=== PATIENT | male | born 1950 | race Caucasian/White ===

== ENCOUNTER 2019-12-14 17:10 | Inpatient (IN) | payer OTHER ==
[~2019-12-14] VITALS: Ht 177.8 cm; Wt 120.3 kg
[2019-12-14 17:11] VITALS: BP 122/45
[2019-12-14 18:23] LABS: HEMATOCRIT 31.9 % (42.0-52.0); HEMOGLOBIN 9.9 gm/dL (14.0-18.0); MCH 28.1 pg (26.0-34.0); MCV 90.7 fL (80.0-100.0); RBC 3.52 mil/uL (4.50-6.00); RDW 18.3 % (10.5-14.5); WBC 4.6 thou/uL (4.0-11.0)
[2019-12-14 18:29] LABS: ANION GAP 12 mmol/L (7-16); BUN 37 mg/dL (7-18); CALCIUM 9.2 mg/dL (8.5-10.1); CHLORIDE 109 mmol/L (98-107); CO2 26 mmol/L (21-32); GLUCOSE 106 mg/dL (74-106); SODIUM 147 mmol/L (136-145)
[2019-12-14 18:39] LABS: ALBUMIN 2.9 g/dL (3.4-5.0); DIRECT BILIRUBIN 0.5 mg/dL (<0.1-0.2); LIPASE 122 U/L (73-393); SGOT 19 U/L (15-37); SGPT 15 U/L (30-65); TOTAL BILIRUBIN 1.2 mg/dL (0.2-1.0); TOTAL PROTEIN 7.9 g/dL (6.4-8.2); TROPONIN-I <0.06 ng/mL (<0.06)
[2019-12-14] MEDS ORDERED: DULOXETINE HCL30 MG PO (19:43)
[2019-12-14] MEDS ORDERED: CEFDINIR300 MG PO (19:44)
[2019-12-14] MEDS ORDERED: LIPITOR40 MG PO (19:44)
[2019-12-14] MEDS ORDERED: VITAMIN C250 MG PO (19:44)
[2019-12-14] MEDS ORDERED: ESOMEPRAZOLE MA40 MG PO (19:45)
[2019-12-14] MEDS ORDERED: ENOXAPARIN40 MG/0.1 SUBQ (19:45)
[2019-12-14] MEDS ORDERED: VITAMIN D325 MC3 PO (19:45)
[2019-12-14] MEDS ORDERED: DEXAMETHASONE6 MG PO (19:45)
[2019-12-14] MEDS ORDERED: LEXAPRO 10 MG T10 M2 PO (19:46)
[2019-12-14] MEDS ORDERED: ATIVAN0.5 M1 PO (19:46)
[2019-12-14] MEDS ORDERED: IRON325 M1 PO (19:46)
[2019-12-14] MEDS ORDERED: FIBERCON625 M1 PO (19:46)
[2019-12-14] MEDS ORDERED: LOPRESSOR50 MG PO (19:46)
[2019-12-14] MEDS ORDERED: MILK OF MA400 MG/5 M PO (19:47)
[2019-12-14] MEDS ORDERED: MIRALAX17 G1 PO (19:47)
[2019-12-14] MEDS ORDERED: MINIPRESS1 MG PO (19:48)
[2019-12-14] MEDS ORDERED: KLOR-CON 10 ER10 MEQ PO (19:48)
[2019-12-14] MEDS ORDERED: ROXICODONE5 MG PO (19:48)
[2019-12-14] MEDS ORDERED: MULTIVITAMINS1 EAC7 PO (19:48)
[2019-12-14] MEDS ORDERED: SPIRONOLACTONE25 MG PO (19:49)
[2019-12-14] MEDS ORDERED: FLOMAX0.4 MG PO (19:49)
[2019-12-14] MEDS ORDERED: CARAFATE 11 GM/10 M1 PO (19:49)
[2019-12-14] MEDS ORDERED: PROAIR HFA8.5 GM INH (19:49)
[2019-12-14] MEDS ORDERED: ASA81BEC PO (19:50)
[2019-12-14] MEDS ORDERED: DEMADEX20 MG PO (19:50)
[2019-12-14 21:25] VITALS: BP 145/54
[2019-12-14 21:49] VITALS: BP 144/53
[2019-12-14 22:17] VITALS: BP 122/72
[2019-12-15 04:28] VITALS: BP 148/68
[2019-12-15 06:01] LABS: HEMATOCRIT 31.7 % (42.0-52.0); HEMOGLOBIN 9.9 gm/dL (14.0-18.0); MCH 28.2 pg (26.0-34.0); MCHC 31.2 g/dL (28.0-37.0); MCV 90.5 fL (80.0-100.0); RBC 3.5 mil/uL (4.50-6.00); RDW 18.1 % (10.5-14.5); WBC 2.5 thou/uL (4.0-11.0)
--- NOTE | 2019-12-15 06:06 | NUR ---
PT REETIMG QUIETLY. SAT 97 ON 2LNC. PARK HAD GOOD UO 1875 CLEAR YELLOW URINE . RESPIRATIONS UNLABORED PRESENTLY.
[2019-12-15 06:18] LABS: CALCIUM 9.2 mg/dL (8.5-10.1); CREATININE 1.9 mg/dL (0.7-1.3); POTASSIUM 4.1 mmol/L (3.5-5.1)
--- NOTE | 2019-12-15 07:42 | EKG ---
[facility] [place] [address] ELECTROCARDIOGRAM REPORT Name: ALEXEY LIVE Room #: 353-P ADM IN M.R.#: [id number] Admission: 12/14/19 Attend Phys: Tali Pham MD Discharge: Date of : 48 Report #: [id number] THIS REPORT FOR: cc: Quan Hodge James D. 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1950 Requested By: Bill Sethi Order Number: [id number] MD: Gurmeet Perez Measurements Intervals [place] Rate: 76 P: 64 MO: 175 QRS: 104 QRSD: 107 T: 75 QT: 420 QTc: 473 Interpretive Statements Sinus rhythm Atrial premature complex Right axis deviation Borderline low voltage, extremity leads No previous ECG available for comparison Electronically Signed On 12-15-2019 7:41:52 CDT by Gurmeet Perez [email or web address] <ELECTRONICALLY SIGNED> By: Gurmeet Perez MD, FACC 12/15/19 0741 1809 1809 Gurmeet Perez MD, [facility] /EPI
[2019-12-15 07:45] VITALS: BP 136/54
--- NOTE | 2019-12-15 10:42 | NUR ---
RD consult for poor intake. Admit with COVID + pneumonia. From SNF, hx CHF, HTN, CVA. No reported wt loss, just decreased appetite. Will add 1 ensure enlive per day to start, and continue to follow intake trends. Expect appetite to improve as breathing issues become more controlled. Low nutrition risk
--- NOTE | 2019-12-15 11:01 | NUR ---
WOUND CONSULT; THE PATIENT HAS DRESSINGS ON THE LEFT HIP INSCISIONS. THE DRESSINGS ARE C/D/I. WE HAVE NOT YET REC'D ORDERS TO MANAGE THIS WOUND YET. TODAY SMALL SKIN TEARS WERE IDENTIFIED THE HANDS. NO S/S OF INFECTION. SMALL COMMON SKIN TEARS. RECOMMENDASTIONS; -ADD A LOW AIR LOSS BED PUMP. -COVER THE SKIN TEARS WITH A BORDER FOAM, CHANGE M/W/F PRN DISCUSSED WITH KAROLINE
[2019-12-15 15:53] VITALS: BP 125/58
--- NOTE | 2019-12-15 16:08 | NUR ---
INITIAL ASSESSMENT: Consult received for discharge planning. JEFF reviewed chart and spoke with nursing and attending physician. Pt was admitted from [facility] due to pneumonia. Pt placed in Enhanced Isolation due to COVID-19. Pt is afebrile and on 2L of O2. Pt is on IV abx. ID consulted. No weekend discharge planned. EJFF spoke with pt's brother, Nasir, via phone. Introduced role of SW. Lengthy discussion regarding pt's hospitalization course and stays in SNFs since January of 2019. Pt was at [facility] and then was transferred to [facility] due to being COVID positive. Pt's brother states he is pt's DPOA and has submitted a [place] Medicaid application on pt's behalf. 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 Pt was living at home and having frequent falls and unable to cook and take care of his apt. Plan is for pt to return to [facility] when medically stable. load planner to fax clinical info to [facility] for review. JEFF updated [facility] post-acute liaison. JEFF is following to assist as needed with discharge planning.
--- NOTE | 2019-12-15 17:18 | NUR ---
ASSUMED CARE OF PT AT 0700. PT VERY LETHARGIC AND DIFFICULT TO AROUSE THIS MORNING - NOW ALERT AND ORIENTED TO SELF AND AWARE THAT HE IS IN HOSPITAL. GOOD APPETITE. ABLE TO USE BEDPAIN. ALL DRESSINGS CHANGED BY WOUND CARE. IV ABX INFUSING PER ORDER. VITALS STABLE. ON 2L, MILD TACHYPNEA. WCM.
--- NOTE | 2019-12-15 17:23 | NUR ---
FAXED CLINICAL UPDATE TO [facility] SPOKE WITH ELTON IN ADM SHE RECEIVED UPDATE.
[2019-12-15 19:55] VITALS: BP 122/55
[2019-12-16 04:48] VITALS: BP 131/58
[2019-12-16 05:25] LABS: WBC 4.7 thou/uL (4.0-11.0)
[2019-12-16 05:27] LABS: HEMATOCRIT 31.5 % (42.0-52.0); HEMOGLOBIN 9.7 gm/dL (14.0-18.0); MCH 27.9 pg (26.0-34.0); MCHC 30.7 g/dL (28.0-37.0); PLATELET COUNT 199 thou/uL (150-400); RBC 3.46 mil/uL (4.50-6.00); RDW 18.5 % (10.5-14.5)
[2019-12-16 05:30] LABS: FIBRINOGEN 251.7 mg/dL (210-360); INR 1.2; PROTIME 12.7 Seconds (9.3-11.4)
[2019-12-16 05:36] LABS: ALBUMIN 2.7 g/dL (3.4-5.0); CALCIUM 8.8 mg/dL (8.5-10.1); CREATININE 1.8 mg/dL (0.7-1.3); PHOSPHORUS 3.8 mg/dL (2.5-4.9); POTASSIUM 4.2 mmol/L (3.5-5.1); TOTAL PROTEIN 7.6 g/dL (6.4-8.2)
--- NOTE | 2019-12-16 06:00 | NUR ---
PT MAKING SLOW PROGRESS TOWARDS GOALS. ON O2 AT 2L PER NC OVERNIGHT. PT EASILY WINDED DURING CONVERSATION. ABLE TO SPEAK A FULL SENTENCE BUT WILL BE SHORT OF AIR AFTER THAT. APPEARS TO RECOVER QUICKLY. DID STATE THAT HE FEELS HE IS BREATHING EASIER TODAY COMPARED TO WHEN HE CAME IN.
[2019-12-16 08:28] VITALS: BP 122/56
[2019-12-16 09:45] LABS: ATYPICAL LYMPHS 2 %
[2019-12-16 09:46] LABS: ANISOCYTOSIS 2+
--- NOTE | 2019-12-16 10:25 | NUR ---
PT RESTING IN BED ALERT XS4. ATE BREAKFAST AND TOOK AM MEDS. PT HAD MED BM. DR MCCARTY ORDERED RT AND NEW ORDERS SEE CHART. SPOKE WITH PATIENT'S BROTHER WHO IS DPOA. HE STATES THIS HAS BEEN GOING ON SINCE JANUARY HAS BEEN IN 6 HOSPITALS.
[2019-12-16 10:34] LABS: HCO3 26.7 mmol/L (22.0-26.0); PCO2 37.6 mmHg (35.0-45.0); pH 7.469 (7.360-7.450); sO2 88.1 % (92.0-98.0)
[2019-12-16 10:36] LABS: PO2 50.4 mmHg (80.0-100.0)
--- NOTE | 2019-12-16 10:56 | NUR ---
SPOKE WITH BROTHER ERIKA AT [phone] ABOUT PATIENT'S TREATMENTS AND NEW ORDERS.
[2019-12-16 15:43] VITALS: BP 129/58
[2019-12-17] VITALS (18 sets, daily range): BP systolic 113–148; BP diastolic 39–78
--- NOTE | 2019-12-17 01:23 | NUR ---
PT LYING IN BED. INCONTINENT OF BOWEL. PARK IN PLACE. DENIES NEED FOR PAIN MEDICATION. RESTING COMFORTABLY. NO NEEDS VOICED. CALL LIGHT WITHIN REACH. FREQUENT OBSERVATION.
[2019-12-17 16:58] LABS: BE(vivo) 2.2 mmol/L (-2 to +3); HCO3 23.3 mmol/L (22.0-26.0); PCO2 25.5 mmHg (35.0-45.0); PO2 136.7 mmHg (80.0-100.0); pH 7.578 (7.360-7.450); sO2 99.1 % (92.0-98.0)
[2019-12-17 17:11] LABS: HEMATOCRIT 32.1 % (42.0-52.0); HEMOGLOBIN 9.9 gm/dL (14.0-18.0); MCHC 30.9 g/dL (28.0-37.0); MCV 90.4 fL (80.0-100.0); PLATELET COUNT 184 thou/uL (150-400); RBC 3.55 mil/uL (4.50-6.00); RDW 18.2 % (10.5-14.5); WBC 2.7 thou/uL (4.0-11.0)
[2019-12-17 17:26] LABS: ANION GAP 10 mmol/L (7-16); BUN 44 mg/dL (7-18); CALCIUM 8.7 mg/dL (8.5-10.1); CHLORIDE 107 mmol/L (98-107); CO2 27 mmol/L (21-32); CREATININE 1.8 mg/dL (0.7-1.3); GLUCOSE 178 mg/dL (74-106); POTASSIUM 4.4 mmol/L (3.5-5.1); SODIUM 144 mmol/L (136-145)
[2019-12-17 17:36] LABS: ABSOLUTE NEUTROPHILS 1.8 thou/uL (1.4-8.2); ALBUMIN 2.6 g/dL (3.4-5.0); MAGNESIUM 2.3 mg/dL (1.8-2.4); SGOT 21 U/L (15-37); SGPT 17 U/L (30-65); TOTAL BILIRUBIN 0.9 mg/dL (0.2-1.0); TOTAL PROTEIN 7.6 g/dL (6.4-8.2); TROPONIN-I <0.06 ng/mL (<0.06)
[2019-12-17 17:37] LABS: MICROCYTES FEW
[2019-12-17 17:38] LABS: ANISOCYTOSIS 1+; OVALOCYTES OCCASIONAL; POIKILOCYTOSIS SLIGHT
[2019-12-17 17:39] LABS: MACROCYTES FEW; POLYCHROMASIA OCCASIONAL
--- NOTE | 2019-12-17 19:25 | NUR ---
PATIENT NOTED TO HAVE INCREASE SOB WITH TACHYPNEA. NOTED TO BE DIAPHORETIC. VITALS HOWEVER ARE STABLE, AND MOST LABS ARE WNL. ORDERS FROM DR CASANOVA AND LUL EARLIER TO ADMIT TO ICU FOR CLOSER OBSERVATION.
--- NOTE | 2019-12-17 20:36 | NUR ---
ASSUMED CARE FROM DAY SHIFT PT RESTING IN BED ONLY ANSWERING TO NAME ONLY, VVS SAY 98 % ON 4L NC, SKIN MOIST, PARK WITH CLEAR YELLOW URINE. DRESSING TO LEFT HIP DRY AND INTACT. BI CONSULTANT SHOWS NSR.
[2019-12-18] VITALS (34 sets, daily range): BP systolic 107–130; BP diastolic 30–87
--- NOTE | 2019-12-18 02:34 | NUR ---
PT TRANSFERED FROM [facility] FOR CLOSE MONITORING IN ICU, ON 4L BY DEB. PT REMAINS STABLE O2 DOWN TO 2L, SATS 98-100%, RR 16-20. WHEN AWAKE PT GETS SOA FROM TALKING OR ANY EXERTION. PT ANSWERS QUESTIONS APPROPRIATELY THOUGH CONFUSED ABOUT THIS HOSPITALISATION. PT SAYS HE CAME TO HOSPITAL FOR PAIN IN HIS LEFT HIP, MENTIONING THAT HE WAS OUT OF HIS PAIN MEDICINE. PT IS DIAPHORETIC, GOWN DAMP WITH SWEAT, NO FEVER, GLUCOSE WAS 142. WILL MONITOR.
[2019-12-18 04:57] LABS: HEMATOCRIT 32.3 % (42.0-52.0); HEMOGLOBIN 9.9 gm/dL (14.0-18.0); MCH 27.7 pg (26.0-34.0); MCHC 30.8 g/dL (28.0-37.0); MCV 89.9 fL (80.0-100.0); PLATELET COUNT 160 thou/uL (150-400); RBC 3.59 mil/uL (4.50-6.00); RDW 18.3 % (10.5-14.5); WBC 2.7 thou/uL (4.0-11.0)
[2019-12-18 05:05] LABS: ALBUMIN 2.4 g/dL (3.4-5.0); CALCIUM 8.7 mg/dL (8.5-10.1); CREATININE 1.4 mg/dL (0.7-1.3); MAGNESIUM 2.3 mg/dL (1.8-2.4); PHOSPHORUS 3.5 mg/dL (2.5-4.9); POTASSIUM 4.2 mmol/L (3.5-5.1); TOTAL BILIRUBIN 0.8 mg/dL (0.2-1.0); TOTAL PROTEIN 7.3 g/dL (6.4-8.2)
--- NOTE | 2019-12-18 07:47 | NUR ---
Pt TRANSFERRED TO ICU. WILL PLACE ON HOLD AND AWAIT NEW ORDERS WHEN APPROPRIATE
[2019-12-18 09:52] LABS: ABSOLUTE NEUTROPHILS 1.6 thou/uL (1.4-8.2); ANISOCYTOSIS 1+; HYPOCHROMASIA 1+; PLATELET ESTIMATE NORMAL
--- NOTE | 2019-12-18 11:16 | NUR ---
WOUND CARE F/U; DISCUSSED WOUND CARE ISSUES WITH THE RN TODAY. BILATERAL HAND WOUNDS ARE STABLE. WOUND ETIOLOGY IS RE; SKIN TEARS. WE WILL CONTINUE CURRENT WOUND CARE ORDERS WITH BORDER FOAMS BILATERALLY. NO CHANGES TO PLAN OF CARE.
--- NOTE | 2019-12-18 16:12 | NUR ---
SW reviewed chart and spoke with attending physician. Pt was transferred to ICU from 3W earlier today due to respiratory distress. Possible need for bipap. Pt remains in Enhanced Isolation due to COVID-19. Pt is afebrile and on IV abx. Pt has started course of Remdesivir. JEFF provided upated to [facility] post-acute liaison. Plan is for pt to return to [facility]. JEFF is following to assist as needed with discharge planning.
[2019-12-19] VITALS (46 sets, daily range): BP systolic 90–142; BP diastolic 36–80
[2019-12-19 06:11] LABS: CREATININE 1.5 mg/dL (0.7-1.3); POTASSIUM 4.6 mmol/L (3.5-5.1)
--- NOTE | 2019-12-19 07:06 | NUR ---
PATIENT HAD A MED SIZE FORMED BM THIS MORNING AT 0500 . PATIENT STATES HE IS FEELING MUCH BETTER THIS MORNING.
--- NOTE | 2019-12-19 09:23 | 2DMMODE ---
[facility] [place] [address] [address] [place] [address] 2 D/M-MODE ECHOCARDIOGRAM Name: ALEXEY LIVE Room #: 237-P ADM IN M.R.#: [id number] Admission: 12/14/19 Attend Phys: Tali Pham MD Discharge: Date of : 48 Report #: [id number] THIS REPORT FOR: cc: Quan Hodge James D. DO Santiago, Patrick MD [facility] ~ APPROVED REPORT Study performed: 12/19/2019 08:41:22 EXAM: Limited 2D, Doppler, and color-flow Echocardiogram Patient Location: ICU Room #: 237 Status: routine BSA: 2.26 HR: 72 bpm BP: 125/50 mmHg Rhythm: Irregular Other Information Study Quality: Adequate Indications COVID-19 Positive. Limited echo done. Respiratory failure, elevated BNP, CHF. Aortic Valve AoV Peak Sam.: 2.94 m/s AO Peak Gr.: 34.61 mmHg AO Mean Gr.: 15.33 mmHg AO V2 Mean: 1.80 m/s AO V2 VTI: 60.74 cm Tricuspid Valve TR Peak Sam.: 3.83 m/s RAP Estimate: 10.00 mmHg TR Peak Gr.: 59.00 mmHg PA Pressure: 69.00 mmHg Left Ventricle The left ventricle is normal size. There is normal LV segmental wall motion. There is normal left ventricular wall thickness. Left ventricular systolic function is normal. LVEF is 50-55%. Right Ventricle Right ventricle is dilated. Right ventricle is [facility] [address] [place] [address] 2 D/M-MODE ECHOCARDIOGRAM Name: ALEXEY LIVE Room #: 237-P ADM IN M.R.#: [id number] Admission: 12/14/19 Attend Phys: Jessica Cristina Discharge: Date of : 48 Report #: [id number] hypokinetic. Atria Left atrium is dilated. Right atrium is dilated. Aortic Valve Aortic valve is calcified with restricted opening. Peak pressure gradient of 35mmHg and a mean of 16mmHg. Moderate/severe aortic regurgitation. Mitral Valve The mitral valve is normal in structure. Mild mitral annular calcification. Moderate/severe mitral regurgitation. Tricuspid Valve The tricuspid valve is normal in structure. Severe tricuspid regurgitation. Estimated PAP is 70mmHg. Great Vessels IVC is dilated and collapses <50% with inspiration. Pericardium There is no pericardial effusion. <Conclusion> Normal left atrial size and the wall thickness is Ejection fraction estimated 55%, no obvious segmental wall motion abnormality Aortic valve is mildly calcified, mild aortic valve stenosis mean gradient 16 mmHg Moderate biatrial enlargement Moderate right ventricular enlargement, mild hypokineses Moderate to severe aortic valve insufficiency Moderate mitral valve insufficiency Severe tricuspid valve insufficiency Severe pulmonary hypertension Pulmonary artery systolic pressure estimated at 70 mmHg No pericardial effusion <ELECTRONICALLY SIGNED> By: Gurmeet Perez MD, FACC 12/19/19922 2 2 Gurmeet Perez MD, FAC /INF
--- NOTE | 2019-12-19 12:56 | NUR ---
JEFF reviewed chart and spoke with attending physician. Pt remains in ICU in Enhanced Isolation due to COVID-19. Pt is afebrile and on 2L of O2. Pt is on IV abx and completing course of Remdesivir. JEFF faxed clinical updated to [facility] for review. Confirmed info was received with [facility] post-acute liaison. JEFF spoke with pt's brother, Nasir, to provide update. Plan is for pt to return to [facility] SNF when medically stable. Will need therapy orders when pt is able to participate. JEFF is following to assist as needed with discharge planning.
--- NOTE | 2019-12-19 19:08 | NUR ---
PATIENT CHANGED STATUS TODAY. CAN GO TO 3W WHEN BED BECOMES AVAILABLE. PATIENT 2L NC WHICH IS HOME O2 AMOUNT. ADEQUATE URINE OUTPUT. GOOD APPETITE.
[2019-12-20] VITALS (23 sets, daily range): BP systolic 106–153; BP diastolic 40–57
[2019-12-20 05:13] LABS: ALBUMIN 2.7 g/dL (3.4-5.0); DIRECT BILIRUBIN 0.3 mg/dL (<0.1-0.2); TOTAL BILIRUBIN 0.7 mg/dL (0.2-1.0); TOTAL PROTEIN 7.6 g/dL (6.4-8.2)
--- NOTE | 2019-12-20 09:21 | NUR ---
WOUND CARE F/U; PT REMAINS IN ISOLATION DUE TO COVID, THEREFORE LIMITED ASSESSMENT ON WOUNDS, PER HOUSEKEEPER HOME EDIL WOUNDS HEALING, SURGICAL INCISION HIP HEALING, SKIN TEARS ON HANDS, PHOTOS TO BE TAKEN TODAY, WILL ASSESS PER PHOTO AND TO NOTIFY WOUND TEAM IF WORSEN, HIP INCISION CARE PER SURGEON RECOMMENDATIONS; CONT BORDER FOAM TO HANDS CHANGE M/W/F AND PRN, SURGICAL HIP WOUND CARE PER SURGEON HOUSEKEEPER HOME AWARE
--- NOTE | 2019-12-20 15:53 | NUR ---
COMPLAINED OF PAIN TO L WRIST, 10/01. PERCOCET 10MG GIVEN WITH GOOD RESULTS. TOLERATED WELL. STATED HE GOT HIS WRIST X-RAYED AFTER HIS FALL BUT DID NOT KNOW THE RESULTS. MD NOTIFIED. OOB TO CHAIR WITH PT, MAX ASSIST. WHEN TRYING TO GET FROM CHAIR TO BSC, LEFT KNEE GAVE OUT AND PATIENT PUT BACK IN BED WITH GAITBELT AND NURSE TIMES 2. REPORT GIVEN TO KAROLINE CERNA AND PATIENT TRANSFERRED IN STABLE CONDITION TO 360.
[2019-12-21 05:04] VITALS: BP 118/40
[2019-12-21 08:40] VITALS: BP 117/81
[2019-12-21 12:53] VITALS: BP 125/48
[2019-12-21 16:09] VITALS: BP 111/49
--- NOTE | 2019-12-21 16:26 | NUR ---
PATIENT ALERT TO SELF, FORGETFUL AT TIMES BUT ABLE TO HOLD CONVERSATION. RECENT LEFT HIP FX. PAIN MANAGEMENT FOCUS TODAY. PRN OXYCODONE GIVEN PER APR. PT WORKED WITH PT/OT TODAY. VERY WEAK AND REQURING MAX SUPPORT. THIS AFTERNOON PATIENT BECAME VERY DIAPHORETIC. AFEBRILE. BLOOD SUGAR CHECKED. COMMUNICATED TO DR. MOSCOSO, WILL CONTINUE TO MONTIOR PATIENT AND CHECK CBC IN AM. PATIENT STATES HE IS COMFORTABLE.
[2019-12-21 19:23] VITALS: BP 125/47
[2019-12-22 04:21] VITALS: BP 121/37
--- NOTE | 2019-12-22 06:42 | NUR ---
FOLLOWING POC WITH [facility] ANTIBIOTICS. VSS, TELE SHOWS SR, NO FEVER OVERNIGHT. PT ONLY COMPLAINT WAS PAIN, ORAL PAIN MEDICATION GIVEN WITH GOOD RESULTS. PT BED ON LOW LOSS PUMP. PARK GETTING DRAINAGE.
[2019-12-22 07:28] LABS: HEMATOCRIT 35.9 % (42.0-52.0); HEMOGLOBIN 10.8 gm/dL (14.0-18.0); MCH 27.3 pg (26.0-34.0); MCV 90.9 fL (80.0-100.0); RBC 3.95 mil/uL (4.50-6.00); RDW 18.9 % (10.5-14.5); WBC 6.1 thou/uL (4.0-11.0)
[2019-12-22 07:34] LABS: CALCIUM 9.8 mg/dL (8.5-10.1); CREATININE 1.6 mg/dL (0.7-1.3); POTASSIUM 4.7 mmol/L (3.5-5.1)
[2019-12-22 07:43] VITALS: BP 131/106
--- NOTE | 2019-12-22 08:12 | NUR ---
follow up: continued length of stay for COVID+. On thiamine, vitamin C, vitamin D and thiamine as well as ferrous sulfate. Wt up from 240s to 265 lb ? accuracy, no edema. Eating 75-90% meals. Remains low nutrition risk
[2019-12-22] MEDS ORDERED: METOPROLOL TART25 MG PO (11:13)
[2019-12-22] MEDS ORDERED: CEFDINIR300 MG PO (11:13)
--- NOTE | 2019-12-22 11:15 | NUR ---
WOUND CARE F/U; THE PATIENT IS IN COVID RESTRICTIONS. I DISCUSSED THE PATIENT WITH THE MANAGER ETL. THE PATIENT HAS STAPLED RE;HIP SURGERY. THE RN WILL FIND OUT WHEN THE SURGEON WANTS THE MARTIN OUT. I WOULD BE HAPPY TO REMOVE THE MARTIN IF NECCESSARY. THE RN REPORTS THE SKIN TEARS ARE STABLE AT THIS TIME. NO CHANGES TO POC
[2019-12-22 11:38] VITALS: BP 135/56
--- NOTE | 2019-12-22 14:26 | NUR ---
DISCHARGE NOTE: SW reviewed chart and spoke with nursing and attending physician. Pt remains in Enhanced Isolation due to COVID-19. Pt is medically stable for discharge back to [facility] today. senior program planner coordinated and notified family. Transportation scheduled for [id number] per facility's arrangements. Chart copy requested. No additional SW needs identified at this time, but is available to assist should needs arise.
--- NOTE | 2019-12-22 15:37 | NUR ---
ASSUMED CARE OF PT AT 0700. PT ALERT AND ORIENTED, FORGETFUL AND SOMEWHAT CONFUSED AT TIMES. AWARE OF DATE AND THAT HE IS IN HOSPITAL. VERY PLEASANT. C/O PAIN IN LEFT HIP - GOOD RELIEF WITH MED REGIMEN. INCONTINENT. SKIN TEAR DRESSINGS CHANGED PER ORDER. BREATHING ON 2L NC - DENIES SOA BUT VISIBLY WINDED AFTER CONVERSATIONS. ANTICIPATE D/C BACK TO FACILITY TODAY.
[2019-12-22 15:45] VITALS: BP 152/115
== END 2019-12-22 17:24 | DRG 177 ==
LOC: ER 17:10 → EROBS 21:04 → 3W 21:04 → ICU 21:04 → 3W 21:52 → ICU 12-17 20:34 → 3W 12-20 15:20
PROVIDERS: Emergency Medicine; Hospitalist; Internal Medicine; Internal Medicine Pulmonary Disease; Nurse Practitioner Family; Specialist; ADMIT Hospitalist; ATTEND Hospitalist
PROC: XW033E5 Introduction of Remdesivir Anti-infective into Peripheral Vein, Percutaneous Approach, New Technology Group 5 (ICD-10-PCS; principal; 2019-12-15)
DX: U07.1 COVID-19 (principal); J96.21 Acute and chronic respiratory failure with hypoxia; J12.89 Other viral pneumonia; I42.9 Cardiomyopathy, unspecified; I13.0 Hypertensive heart and chronic kidney disease with heart failure and stage 1 through stage 4 chronic kidney disease, or unspecified chronic kidney disease; I50.9 Heart failure, unspecified; N18.30 Chronic kidney disease, stage 3 unspecified; N40.0 Benign prostatic hyperplasia without lower urinary tract symptoms; E78.5 Hyperlipidemia, unspecified; D64.9 Anemia, unspecified; G72.89 Other specified myopathies; Z60.2 Problems related to living alone; I27.20 Pulmonary hypertension, unspecified; D72.819 Decreased white blood cell count, unspecified; Z86.73 Personal history of transient ischemic attack (TIA), and cerebral infarction without residual deficits; Z87.81 Personal history of (healed) traumatic fracture; Z23 Encounter for immunization; Z79.899 Other long term (current) drug therapy
CPT/HCPCS: 10078; 10080; 10203; 10879

== ENCOUNTER 2020-02-26 14:48 | Emergency (ER) | payer OTHER ==
[~2020-02-26] VITALS: Ht 177.8 cm; Wt 79.8 kg
[~2020-02-26 14:48] MED LIST: ASA81BEC PO; ATIVAN0.5 M1 PO; CARAFATE 11 GM/10 M1 PO; CEFDINIR300 MG PO; DEMADEX20 MG PO; DEXAMETHASONE6 MG PO; DULOXETINE HCL30 MG PO; ENOXAPARIN40 MG/0.1 SUBQ; ESOMEPRAZOLE MA40 MG PO; FIBERCON625 M1 PO; FLOMAX0.4 MG PO; IRON325 M1 PO; KLOR-CON 10 ER10 MEQ PO; LEXAPRO 10 MG T10 M2 PO; LIPITOR40 MG PO; LOPRESSOR50 MG PO; METOPROLOL TART25 MG PO; MILK OF MA400 MG/5 M PO; MINIPRESS1 MG PO; MIRALAX17 G1 PO; MULTIVITAMINS1 EAC7 PO; PROAIR HFA8.5 GM INH; ROXICODONE5 MG PO; SPIRONOLACTONE25 MG PO; VITAMIN C250 MG PO; VITAMIN D325 MC3 PO
[2020-02-26 16:06] VITALS: BP 138/58
== END 2020-02-26 16:06 | disposition home or self-care (01) ==
LOC: ER 14:48
DX: S09.90XA Unspecified injury of head, initial encounter (principal); I13.0 Hypertensive heart and chronic kidney disease with heart failure and stage 1 through stage 4 chronic kidney disease, or unspecified chronic kidney disease; N18.30 Chronic kidney disease, stage 3 unspecified; I50.9 Heart failure, unspecified; Z79.899 Other long term (current) drug therapy; W18.39XA Other fall on same level, initial encounter; Y93.89 Activity, other specified; Y92.89 Other specified places as the place of occurrence of the external cause; Y99.8 Other external cause status

== ENCOUNTER 2020-03-05 11:54 | Inpatient (IN) | payer OTHER ==
[~2020-03-05] VITALS: Ht 182.9 cm; Wt 107.0 kg
--- NOTE | ~2020-03-05 | EEG ---
[facility] [place] [address] [address] [place] [address] ELECTROENCEPHALOGRAM Name: ALEXEY LIVE Room #: 241-P ADM IN M.R.#: [id number] Admission: 03/05/20 Attend Phys: Sushant Contreras MD Discharge: Date of : 48 Report #: [id number] THIS REPORT FOR: //name// DATE OF SERVICE: 03/11/2020 This patient is being evaluated for altered mental status. EEG is being done to further evaluate for encephalopathy or seizure. The patient's background activity is pretty suppressed and low voltage. It is difficult to determine the frequency. It appeared to be about 4 Hz and 15-20 microvolt. May be higher on occasion, but that is difficult to separate from artifact. Photic stimulation is unremarkable. IMPRESSION: This is an abnormal EEG because it is disorganized and pretty suppressed. There is a nonspecific abnormality, which can occur with dementia, encephalopathy, effect of psychotropic medication, etc. Clinical correlation is recommended. He does have some frontal sharper activity, but that looks more like an eye movement artifact, but it is difficult to be certain. By: 1207 1215 Al Pierre MD /nt
[2020-03-05 12:21] LABS: HEMATOCRIT 40.8 % (42.0-52.0); HEMOGLOBIN 12.5 gm/dL (14.0-18.0); MCH 28.4 pg (26.0-34.0); MCHC 30.7 g/dL (28.0-37.0); MCV 92.3 fL (80.0-100.0); PLATELET COUNT 223 thou/uL (150-400); RBC 4.42 mil/uL (4.50-6.00); RDW 18.4 % (10.5-14.5); WBC 16.4 thou/uL (4.0-11.0)
[2020-03-05] MEDS ORDERED: TOPROL XL25 MG PO (12:23)
[2020-03-05] MEDS ORDERED: WOMEN'S LAXATIVE5 M1 PO (12:24)
[2020-03-05 12:29] LABS: BE(vivo) -10.9 mmol/L (-2 to +3); HCO3 16.6 mmol/L (22.0-26.0); PCO2 42.9 mmHg (35.0-45.0); PO2 272.7 mmHg (80.0-100.0); pH 7.205 (7.360-7.450); sO2 99.5 % (92.0-98.0)
[2020-03-05 12:32] LABS: ANION GAP 11 mmol/L (7-16); BUN 15 mg/dL (7-18); CHLORIDE 103 mmol/L (98-107); CO2 19 mmol/L (21-32); CREATININE 1.4 mg/dL (0.7-1.3); GLUCOSE 213 mg/dL (74-106); SODIUM 133 mmol/L (136-145)
[2020-03-05 12:36] LABS: INR 1.2
[2020-03-05 12:46] LABS: ABSOLUTE NEUTROPHILS 11.6 thou/uL (1.4-8.2); PLATELET ESTIMATE NORMAL; SGOT 455 U/L (15-37); SGPT 388 U/L (16-63); TOTAL BILIRUBIN 0.8 mg/dL (0.2-1.0); TOTAL PROTEIN 7.2 g/dL (6.4-8.2); TROPONIN-I <0.06 ng/mL (<0.06)
--- NOTE | 2020-03-05 12:46 | EKG ---
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 : 1950 Requested By: Stiven Lemons Order Number: [id number] MD: Gurmeet Perez Measurements Intervals [place] Rate: 96 P: 52 AK: 182 QRS: 80 QRSD: 103 T: 70 QT: 423 QTc: 535 Interpretive Statements Sinus rhythm Probable left atrial enlargement Left ventricular hypertrophy Nonspecific T abnrm, anterolateral leads Prolonged QT interval Baseline wander in lead(s) I,III,aVL Compared to ECG 12/14/2019 18:09:14 Left ventricular hypertrophy now present Prolonged QT interval now present Atrial premature complex(es) no longer present Right-axis deviation no longer present Electronically Signed On 03-05-2020 12:46:46 INDUSTRIAL GAS SERVICE HELPER by Gurmeet Perez [email or web address] <ELECTRONICALLY SIGNED> By: Gurmeet Perez MD, FAC 03/05/20 1246 1211 1211 Gurmeet Perez MD, [facility] /EPI
[2020-03-05 12:47] LABS: ANISOCYTOSIS 1+
--- NOTE | 2020-03-05 14:24 | NUR ---
Per EMS pt is coming from [facility] where they state he was given his morning meds then suddenly became unresponsive. The staff present where not able to find a pulse and began chest compressions and CPR. Upon arrival of EMS he had a pulse but was unresponsive. EMS administered 2 mg of Narcan IN with no seen effects. The patient was intubated in the ED and admitted to Dr. Contreras who admitted to the ICU. CM will follow for discharge needs.
[2020-03-05 15:34] LABS: URINE BILIRUBIN NEGATIVE (Negative); URINE BLOOD NEGATIVE (Negative); URINE CLARITY CLEAR; URINE GLUCOSE-RANDOM* NEGATIVE (Negative); URINE KETONES NEGATIVE (Negative); URINE LEUKOCYTES-REFLEX NEGATIVE (Negative); URINE NITRITE-REFLEX NEGATIVE (Negative); URINE PROTEIN (DIPSTICK) TRACE (Negative); URINE SPECIFIC GRAVITY 1.025 (1.005-1.035); URINE UROBILINOGEN 0.2 E.U./dl (0.2-1.0)
[2020-03-05 15:35] LABS: URINE COLOR YELLOW
[2020-03-05 15:46] LABS: BE(vivo) -5.9 mmol/L (-2 to +3); HCO3 19.2 mmol/L (22.0-26.0); PCO2 36.8 mmHg (35.0-45.0); PO2 100.4 mmHg (80.0-100.0); pH 7.336 (7.360-7.450); sO2 97.3 % (92.0-98.0)
[2020-03-05 16:23] LABS: CREATININE 1.3 mg/dL (0.7-1.3)
[2020-03-05 16:26] LABS: CALCIUM 5.9 mg/dL (8.5-10.1)
[2020-03-05 16:47] LABS: FIBRINOGEN 373.8 mg/dL (210-360)
--- NOTE | 2020-03-05 16:49 | NUR ---
VAT CONSULTED FOR PICC PLACEMENT. PT'S LABS,MEDS,HX,ORDER CONSENT VERIFIED. ALYCIA CEPHALIC WIDELY PATENT WITH USG. 5FR TL POWER PICC TRIMMED TO 45CM INSERTED TO 0CM. STAT CXR ORDERED. CONSENT FOR MEDICAL NECCESSITY.
--- NOTE | 2020-03-05 17:56 | NUR ---
cxr confirmed picc in svc. released for immediate use per protocol to oscar kearney
[2020-03-05 18:15] VITALS: BP 133/71
--- NOTE | 2020-03-05 19:26 | NUR ---
PT TRANSFERED FROM ED TO ICU AT 1830. PT INTUBATED AND SEDATED. NO RESTRAINTS DUE TO PT BEING NON-RESPONSIVE. POSITIVE CORNEAL, SLIGHT GAG, PUPILS EQUAL AND REACTIVE, NO WITHDRAW TO PAIN, GCS 3, MTN NEEDS TO BE CALLED. OG/ETT/RIJ IN PLACE AND CONFIRMED BY XRAY. PARK IN PLACE. TWO PERIPHERAL IVS WERE DC'D, ONE ON THE RIGHT ANTERIOR WRIST THAT WAS STARTED BY ED WAS EXTRAVASATED. PT HAS DIFFUSE SMALL WOUNDS ALL OVER SKIN. PROPOFOL AND LEVOPHED GTT IN PLACE. UNABLE TO DETERMINE IF PT PROGRESSING TOWARDS POC.
[2020-03-05 23:33] LABS: HEMATOCRIT 36.2 % (42.0-52.0); HEMOGLOBIN 11.6 gm/dL (14.0-18.0); MCH 28.4 pg (26.0-34.0); MCHC 32.1 g/dL (28.0-37.0); MCV 88.4 fL (80.0-100.0); RBC 4.1 mil/uL (4.50-6.00); RDW 17.6 % (10.5-14.5); WBC 12.8 thou/uL (4.0-11.0)
[2020-03-05 23:35] LABS: CREATININE 1.8 mg/dL (0.7-1.3)
[2020-03-06] VITALS (98 sets, daily range): BP systolic 101–188; BP diastolic 39–70
[2020-03-06 00:01] LABS: CALCIUM 8.5 mg/dL (8.5-10.1); POTASSIUM 4.3 mmol/L (3.5-5.1)
[2020-03-06 03:55] LABS: BE(vivo) -2.7 mmol/L (-2 to +3); HCO3 21.9 mmol/L (22.0-26.0); PCO2 37.1 mmHg (35.0-45.0); PO2 160.2 mmHg (80.0-100.0); pH 7.388 (7.360-7.450)
[2020-03-06 06:05] LABS: ABSOLUTE NEUTROPHILS 12.8 thou/uL (1.4-8.2); BASOPHILS 0.2 % (0.0-2.0); HEMATOCRIT 34.5 % (42.0-52.0); LYMPHOCYTES 6.7 % (24.0-44.0); MCH 28.4 pg (26.0-34.0); MCV 88.7 fL (80.0-100.0); MONOCYTES 15.5 % (1.0-8.0); PLATELET COUNT 199 thou/uL (150-400); POLYS 77.6 % (36.0-66.0); RBC 3.89 mil/uL (4.50-6.00); RDW 17.7 % (10.5-14.5); WBC 16.5 thou/uL (4.0-11.0)
[2020-03-06 07:25] LABS: ALBUMIN 2.6 g/dL (3.4-5.0); CALCIUM 8.5 mg/dL (8.5-10.1); CREATININE 1.9 mg/dL (0.7-1.3); POTASSIUM 4.2 mmol/L (3.5-5.1); TOTAL BILIRUBIN 0.9 mg/dL (0.2-1.0); TOTAL PROTEIN 6.2 g/dL (6.4-8.2)
--- NOTE | 2020-03-06 08:55 | NUR ---
If intubated >48hr, recommend initiate tube feeding of vital AF at 25ml/hr.
--- NOTE | 2020-03-06 14:32 | NUR ---
Case discussed with the care team. Nursing has updated the pt's bro/dpoa Rich and he is anxious to talk with the attending regarding his prognosis and plan of care. Message sent to attending. Pt remains intubated in the ICU and unresponsive. [facility] faxing a copy of the pt's dpoa paperwork over for the chart. The pt was here in November with [facility] and was dc'd back to the SNF for continued rehab on 12-22-19. 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 He was continuing to receive part B therapies per his medicare benefits. Prognosis is guarded at this time. Will follow along for support and dc planning as needed. Clincial updated faxed to [facility] as they are holding his bed.
--- NOTE | 2020-03-06 15:36 | NUR ---
FAXED CLINICAL UPDATE TO [facility] SPOKE WITH ELTON IN ADM SHE RECEIVED UPDATE.
[2020-03-06 17:35] LABS: HEMATOCRIT 34.4 % (42.0-52.0); HEMOGLOBIN 11.3 gm/dL (14.0-18.0); MCH 29.1 pg (26.0-34.0); MCHC 32.9 g/dL (28.0-37.0); MCV 88.5 fL (80.0-100.0); PLATELET COUNT 157 thou/uL (150-400); RBC 3.89 mil/uL (4.50-6.00); RDW 18.2 % (10.5-14.5); WBC 10.6 thou/uL (4.0-11.0)
[2020-03-06 17:44] LABS: CALCIUM 8.8 mg/dL (8.5-10.1); CREATININE 1.9 mg/dL (0.7-1.3); POTASSIUM 3.9 mmol/L (3.5-5.1)
[2020-03-06 18:23] LABS: ABSOLUTE NEUTROPHILS 8.7 thou/uL (1.4-8.2); ANISOCYTOSIS 1+; POLYCHROMASIA OCCASIONAL
--- NOTE | 2020-03-06 21:37 | HC ---
[facility] [address] [address] [place] [address] CONSULTATION Name: CALOSSTACYCUBA Room #: 241-P ADM IN M.R.#: [id number] Admission: 03/05/20 Attend Phys: Sushant Contreras MD Discharge: Date of : 48 Report #: [id number] THIS REPORT FOR: cc: Quan Hodge James D. DO Geha, Daniel J. MD ~ DATE OF SERVICE: 03/06/2020 INFECTIOUS DISEASE CONSULTATION REASON FOR CONSULTATION: I was asked to evaluate concerning pneumonia and respiratory failure. HISTORY OF PRESENT ILLNESS: The patient is a 70-year-old with a previous history of COVID-19 who was seen for this in 11/2019. He resides at a local detention and was found down yesterday unresponsive, pulseless by nursing staff. CPR was initiated and he regained his pulse. Brought in to the Emergency Room for further evaluation, found to have bilateral pulmonary infiltrates, remains hypotensive on the ventilator now at 50%. Small to moderate amount of tracheal secretions. Was placed on broad antibiotic coverage. No gross aspiration has been witnessed. He does have an NG tube in place with blood-tinged return. No reported abdominal pain or diarrhea. He has had reasonable urine output. CT scan of the head showed no evidence of hemorrhage. He remains sedated while on the ventilator. REVIEW OF SYSTEMS: A 14-point review was negative other than what has been described above. ALLERGIES: None known. MEDICATIONS: As noted on his MAR, which were reviewed, currently on vancomycin, Levaquin and Zosyn. PAST MEDICAL HISTORY: Pneumonia, COVID-19 positive in November and treated for such, anemia, hypertension, chronic kidney disease, BPH, stroke, congestive heart failure, left femur fracture, status post ORIF. FAMILY HISTORY: Not available. SOCIAL HISTORY: Past smoker, no significant alcohol intake at this time. PHYSICAL EXAMINATION: VITAL SIGNS: Temperature was 39.2. Vital signs were stable on 8 mcg of Levophed. SKIN: Without rash or decubitus. No palpable adenopathy, was obese. [facility] [address] [place] [address] CONSULTATION Name: CUBA LIVE Room #: 241-P ADM IN M.R.#: [id number] Admission: 03/05/20 Attend Phys: Sushant Contreras MD Discharge: Date of : 48 Report #: [id number] HEENT: Eyes, without scleral icterus. Pupils are equal, round and reactive to light. Mouth without mucositis. He was orally intubated. NECK: Supple. LUNGS: Coarse bilaterally. HEART: Regular without appreciable murmur, gallop or rub. ABDOMEN: Soft, no mass or hepatosplenomegaly. GENITOURINARY: External genitalia without mass or lesion. He had an indwelling Miller catheter. RECTAL: Not performed. EXTREMITIES: With 1+ edema in the lower extremities. No cyanosis or clubbing. Able to move all of his extremities. NEUROLOGIC: He was sedated. LABORATORY STUDIES: Reviewed. MICROBIOLOGY: Reviewed. CT scan of the chest and chest x-ray reviewed. IMPRESSION: A 70-year-old presents with dji-em-gcvbdldp cardiac arrest, healthcare-associated pneumonia with respiratory failure, previous stroke and congestive heart failure with chronic kidney disease. Recent COVID-19 infection. RECOMMENDATIONS: We will continue broad antibiotic coverage, awaiting cultures. Serial chest x-rays. ICU full support at this point. Further discussion with the family is being undertaken regarding overall treatment plan. I have discussed with nursing staff at the bedside. <ELECTRONICALLY SIGNED> By: Cuba Chavez MD 03/06/20 2137 1227 1250 Cuba Chavez MD /nt
[2020-03-07] VITALS (85 sets, daily range): BP systolic 109–136; BP diastolic 45–60
--- NOTE | 2020-03-07 05:33 | NUR ---
PATIENT IS SADATED AND CONTINUES TO BE NON RESPONSIVE. VERY LITTLE MOVEMENT TO PAIN STIMULI.PATIENT WAS ASSESSED AND MEDS WERE PASSED PERDOCTORS ORDER. HEPARIN PLACED ON HOLD UNTIL APTT COMES BACK DUE TO SUCTION CONTAINER HAD 700CC OF BLOODY LIQUID. WILL REINSTATE PER PROTOCAL.
[2020-03-07 05:53] LABS: CREATININE 1.5 mg/dL (0.7-1.3)
[2020-03-07 05:54] LABS: ABSOLUTE NEUTROPHILS 3.9 thou/uL (1.4-8.2); BASOPHILS 0.7 % (0.0-2.0); EOSINOPHILS 0.4 % (0.0-3.0); HEMATOCRIT 24.1 % (42.0-52.0); LYMPHOCYTES 13.4 % (24.0-44.0); MCH 31.8 pg (26.0-34.0); MCHC 35.4 g/dL (28.0-37.0); MCV 89.9 fL (80.0-100.0); MONOCYTES 15.7 % (1.0-8.0); PLATELET COUNT 114 thou/uL (150-400); POLYS 69.8 % (36.0-66.0); RBC 2.68 mil/uL (4.50-6.00); RDW 18.3 % (10.5-14.5); WBC 5.6 thou/uL (4.0-11.0)
[2020-03-07 06:01] LABS: CALCIUM 5.2 mg/dL (8.5-10.1); POTASSIUM 2.7 mmol/L (3.5-5.1)
[2020-03-07 06:05] LABS: HEMOGLOBIN 8.5 gm/dL (14.0-18.0)
--- NOTE | 2020-03-07 15:14 | NUR ---
PATIENT ON THE VENT, LIGHTLY SEDATED. WITH SEDATION VACATION PATIENT BECOMES TACHYPNIC AND USES ACCESSORY MUSCLES. WEANED OFF LEVO GTT AND MAINTAINING NORMAL BP. ASSESSMENT DOCUMENTED. PER DR. EATON PATIENT'S BROTHER UPDATED EARLIER BY
--- NOTE | 2020-03-07 15:21 | NUR ---
THIS AFTERNOON RECEIVED CALL FROM PATIENT'S BROTHER ERIKA FOR AN UPDATE. HE WANTED FOR PATIENT'S FRIEND TO CALL RN FOR UPDATE. I EXPLAINED TO HIM THAT ONLY ONE DESIGNATED PERSON WAS SUPPOSED TO GET INFO OVER THE PHONE AND WAS TO UPDATE OR SHARE THAT INFO WITH WHOMEVER THEY WANTED UPDATED. PATIENT'S BROTHER GOT ANGRY STATING, "THAT'S THE MOST STUPID THING I EVER HEARD." HE ALSO SAID THAT THE DID NOT TELL HIM THAT ONLY ONE PERSON CAN CALL TO GET INFORMATION. ANYWAY, I UPDATED HIM ON HIS BROTHER'S CONDITION.
[2020-03-07 15:23] LABS: MAGNESIUM 2.5 mg/dL (1.8-2.4)
[2020-03-07 15:28] LABS: POTASSIUM 4.5 mmol/L (3.5-5.1)
[2020-03-07 15:29] LABS: CALCIUM 8.9 mg/dL (8.5-10.1)
[2020-03-08] VITALS (59 sets, daily range): BP systolic 104–142; BP diastolic 39–103
--- NOTE | 2020-03-08 06:29 | NUR ---
ASSUMED CARE AT 1900. LOW-MEDIUM BLOODY OUTPUT FROM ORAL SUCTION; MINIMAL LIGHT GREEN OUTPUT INTO THE OG SUCTION. MINIMAL GAG REFLEX. CONTINUES ON 40% FIO2 AND PROPOFOL FOR VENT MANAGEMENT. NOT PROGRESSING TOWARDS GOALS.
--- NOTE | 2020-03-08 19:23 | NUR ---
assumed care of pt 0700. sedation vacatio performed 0800. pt not following commands only responding painful stimuli. sedation halved throughout shift. pt remained afebrile. aduequate output. 1600 updated pt brother in plan of care. pt not progressing in plan of care.
[2020-03-09] VITALS (42 sets, daily range): BP systolic 115–142; BP diastolic 49–58
[2020-03-09 04:29] LABS: HEMATOCRIT 29.9 % (42.0-52.0); HEMOGLOBIN 9.7 gm/dL (14.0-18.0); MCH 28.8 pg (26.0-34.0); MCHC 32.4 g/dL (28.0-37.0); MCV 89.1 fL (80.0-100.0); RBC 3.35 mil/uL (4.50-6.00); RDW 17.4 % (10.5-14.5); WBC 4.7 thou/uL (4.0-11.0)
[2020-03-09 04:32] LABS: CALCIUM 9.1 mg/dL (8.5-10.1); CREATININE 1.7 mg/dL (0.7-1.3); POTASSIUM 3.4 mmol/L (3.5-5.1)
--- NOTE | 2020-03-09 05:53 | NUR ---
SEDATION INCREASED DUE TO PT NOT SETTLING WELL, CONTINUING TO BE TACHYCARDIC AND TACHYPENIC. HR NOW 83, RR 20-22, IS BREATHING MORE SYNCHRONOUS WITH VENTILATOR.
--- NOTE | 2020-03-09 18:46 | NUR ---
PATIENT NOT PROGRESSING TOWARDS PLAN OF CARE. SEDATION VACATION TODAY. PATIENT OPENS EYES. SPOKE TO DPOA BROTHER ERIKA AND GAVE PATIENT UPDATE. NEUROLOGY CONSULTED.
[2020-03-10] VITALS (32 sets, daily range): BP systolic 105–157; BP diastolic 44–130
[2020-03-10 04:48] LABS: HEMATOCRIT 30.7 % (42.0-52.0); HEMOGLOBIN 9.8 gm/dL (14.0-18.0); MCH 28.6 pg (26.0-34.0); MCHC 31.8 g/dL (28.0-37.0); MCV 90.1 fL (80.0-100.0); RBC 3.41 mil/uL (4.50-6.00); WBC 4.4 thou/uL (4.0-11.0)
[2020-03-10 05:38] LABS: CALCIUM 9.3 mg/dL (8.5-10.1); CREATININE 1.5 mg/dL (0.7-1.3); POTASSIUM 3.6 mmol/L (3.5-5.1)
--- NOTE | 2020-03-10 06:45 | NUR ---
SV FROM [id number], PT DID NOT RESPOND TO VOICE, WITHDRAWS LIMBS TO PAINFUL STIMULI. EYES NOT NOT APPEAR TO FOCUS ON ANYTHING, DEVIATE UP. PUPILS REACTIVE. BACK ON SEDATION DUE TO TACHYPENIA. TOLERATING SLOW TITRATION DOWN TO OFF OF PROPOFOL AT 0530. HR CURRENTLY 90., RR 23, NO RESPONSE
--- NOTE | 2020-03-10 18:57 | NUR ---
PATIENT NOT PROGRESSING TOWARDS PLAN OF CARE. NEUROLOGY SEEN PATIENT TODAY. PLANS FOR EEG AND MRI TOMORROW. TUBE FEEDS INITIATED GOAL 25ML/HR, VITAL AF AT 10ML AN HOUR.
[2020-03-11] VITALS (31 sets, daily range): BP systolic 112–144; BP diastolic 45–66
[2020-03-11 06:37] LABS: HEMATOCRIT 30.5 % (42.0-52.0); HEMOGLOBIN 9.9 gm/dL (14.0-18.0); MCH 28.4 pg (26.0-34.0); MCHC 32.3 g/dL (28.0-37.0); MCV 87.9 fL (80.0-100.0); RBC 3.47 mil/uL (4.50-6.00); RDW 16.8 % (10.5-14.5); WBC 5.2 thou/uL (4.0-11.0)
[2020-03-11 06:48] LABS: CALCIUM 8.9 mg/dL (8.5-10.1); CREATININE 1.4 mg/dL (0.7-1.3)
--- NOTE | 2020-03-11 07:36 | NUR ---
PATIENT HAD ONE LARE BM. TOLERATED TUBE FEEDING AND ACHIEVED GOAL RATE. 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 MRI & EEG PLANNED FOR FOR TODAY. PLACED PROTECTIVE DRESSING ON BOTTOM TO PREVENT BREAKDOWN. PROGRESSING TOWARDS GOALS OF POC.
--- NOTE | 2020-03-11 09:04 | NUR ---
0882 SPOKE WITH PT'S BROTHER/ZEINA JAMES AND UPDATED HIM AND REVIEWED MRI SCREENING TOOL. PLAN FOR MRI OF HEAD TODAY.
--- NOTE | 2020-03-11 09:40 | NUR ---
Tube feed goal of vital HP at 60ml/hr and add 1 packet beneprotein in each water flush ordered.
--- NOTE | 2020-03-11 13:39 | NUR ---
on-going assessment: DAGMAR SPOKE WITH ELTON FUENTES [facility] REQUESTING AN UPDATE. CM FAXED CLINICAL TO THE FACILITY. PT REMAINS SEDATED ON THE VENT. MRI, EEG PENDING. CM WILL CONTINUE TO FOLLOW TO ASSIST NEEDED.
--- NOTE | 2020-03-11 18:26 | NUR ---
1330 PT HAD MRI OF HEAD AND EEG THIS AM. PROPOFOL TURNED OFF AT 1130, PRIOR TO MRI AND REMAINS OFF AT THIS TIME. PT GIVEN VERSED AND MORPHINE DURING MRI. WILL OPEN EYES AND FOLLOW COMMANDS IN LUE AND BILAT LE BUT VERY WEAK. POTASSIUM TREATED PER ELECTROLYTE PROTOCOL. SLOWLY ADVANCING TUBE FEEDING AND BENEPROTEIN ADDED TO WATER FLUSHES ORDERED. WILL CONTINUE TO MONITOR PT.
[2020-03-12] VITALS (31 sets, daily range): BP systolic 96–152; BP diastolic 43–73
[2020-03-12 05:49] LABS: HEMATOCRIT 30.4 % (42.0-52.0); MCH 28.8 pg (26.0-34.0); MCHC 32.9 g/dL (28.0-37.0); MCV 87.6 fL (80.0-100.0); RBC 3.47 mil/uL (4.50-6.00); RDW 16.7 % (10.5-14.5); WBC 5.6 thou/uL (4.0-11.0)
[2020-03-12 06:00] LABS: CALCIUM 8.7 mg/dL (8.5-10.1); CREATININE 1.3 mg/dL (0.7-1.3); POTASSIUM 3.4 mmol/L (3.5-5.1)
--- NOTE | 2020-03-12 19:04 | NUR ---
PATIENT PALLIATIVE EXTUBATED AT 1500 TO 1L NC. MORPHINE AND ATIVAN GIVEN. CONTINUE TO KEEP COMFORTABLE
[2020-03-13] VITALS (16 sets, daily range): BP systolic 90–127; BP diastolic 40–64
--- NOTE | 2020-03-13 09:53 | NUR ---
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
--- NOTE | 2020-03-13 13:55 | NUR ---
Pt now on comfort measures. DNR in place. [facility] updated. Will remain available for support as needed.
--- NOTE | 2020-03-13 15:36 | NUR ---
PATIENT AT 1250, PRONOUNCED BY 2RNS. ATTENDING MD AND CONSULTS NOTIFIED. PATIENT'S BROTHER NOTIFIED VIA PHONE WELL. BELONGINGS (SWEAT PANTS, UNDERWEAR AND $23.50) SENT WITH BODY TO SECURITY.
== END 2020-03-13 12:50 | DRG 870 ==
LOC: ER 11:54 → EROBS 14:02 → ICU 14:02
PROVIDERS: Emergency Medicine; Internal Medicine Pulmonary Disease; Pediatrics; Specialist; ADMIT Internal Medicine; ATTEND Internal Medicine
PROC: 5A12012 Performance of Cardiac Output, Single, Manual (ICD-10-PCS; principal; 2020-03-05)
PROC: 0BH17EZ Insertion of Endotracheal Airway into Trachea, Via Natural or Artificial Opening (ICD-10-PCS; principal; 2020-03-05)
PROC: 02HV33Z Insertion of Infusion Device into Superior Vena Cava, Percutaneous Approach (ICD-10-PCS; principal; 2020-03-05)
PROC: 5A1955Z Respiratory Ventilation, Greater than 96 Consecutive Hours (ICD-10-PCS; principal; 2020-03-05)
DX: A41.9 Sepsis, unspecified organism (principal); J18.9 Pneumonia, unspecified organism; J96.01 Acute respiratory failure with hypoxia; R65.21 Severe sepsis with septic shock; G92 Toxic encephalopathy; E43 Unspecified severe protein-calorie malnutrition; N17.9 Acute kidney failure, unspecified; I13.0 Hypertensive heart and chronic kidney disease with heart failure and stage 1 through stage 4 chronic kidney disease, or unspecified chronic kidney disease; I50.32 Chronic diastolic (congestive) heart failure; I42.9 Cardiomyopathy, unspecified; G93.1 Anoxic brain damage, not elsewhere classified; I46.9 Cardiac arrest, cause unspecified; N18.30 Chronic kidney disease, stage 3 unspecified; N40.0 Benign prostatic hyperplasia without lower urinary tract symptoms; I27.20 Pulmonary hypertension, unspecified; D64.9 Anemia, unspecified; I25.10 Atherosclerotic heart disease of native coronary artery without angina pectoris; R74.01 Elevation of levels of liver transaminase levels; Z66 Do not resuscitate; Z20.822 Contact with and (suspected) exposure to COVID-19; Z51.5 Encounter for palliative care; I08.3 Combined rheumatic disorders of mitral, aortic and tricuspid valves; Z86.16 Personal history of COVID-19; I95.9 Hypotension, unspecified; Z87.81 Personal history of (healed) traumatic fracture; Z68.32 Body mass index [BMI] 32.0-32.9, adult; Z86.73 Personal history of transient ischemic attack (TIA), and cerebral infarction without residual deficits; Z87.891 Personal history of nicotine dependence; Z79.899 Other long term (current) drug therapy
CPT/HCPCS: 10078; 10204; 27000